=== PATIENT | female | born 1985 | race Caucasian/White ===

== ENCOUNTER → 2018-03-19 | Outpatient (CLI) | payer BC ==
[~2018-03-19] MED LIST: ACET500; ACET500 PO; Advil200 M1 PO; BUSP5 PO; ESCI10 PO; HYDACE5 PO; IBUP800 PO; LANS15EC PO; Multiple Vitam1 EAC1 PO; ONDA4 PO; OXYACE5T PO; RANI150 PO; Verotin-Gr Cap1 EACH PO
[2018-03-21 14:08] LABS: HPV 16 Negative (Negative); HPV 18 Negative (Negative); HPV OTHER HR TYPES Negative (Negative)
== END | disposition home or self-care (01) ==
LOC: LAB SHORT 09:08 → LAB 09:08
PROVIDERS: Obstetrics & Gynecology
DX: Z01.419 Encounter for gynecological examination (general) (routine) without abnormal findings (principal)
CPT/HCPCS: 87624; G0123

== ENCOUNTER 2023-07-07 11:08 | Emergency (ER) | payer BC ==
[~2023-07-07] VITALS: Ht 165.1 cm; Wt 99.8 kg
[~2023-07-07 11:08] MED LIST changes: +DOCU100 PO; +Percocet 5-3251 EACH PO
[2023-07-07 12:57] VITALS: BP 128/83
== END 2023-07-07 13:36 | disposition home or self-care (01) ==
LOC: ER 11:08
DX: O26.893 Other specified pregnancy related conditions, third trimester (principal); R07.81 Pleurodynia; O99.513 Diseases of the respiratory system complicating pregnancy, third trimester; J40 Bronchitis, not specified as acute or chronic; Z3A.33 33 weeks gestation of pregnancy; Z79.899 Other long term (current) drug therapy
CPT/HCPCS: 71045

== ENCOUNTER 2023-08-19 09:23 | Inpatient (IN) | payer BC, OTHER ==
[~2023-08-19] VITALS: Ht 165.1 cm; Wt 104.0 kg
[2023-08-19] VITALS (19 sets, daily range): BP systolic 98–142; BP diastolic 58–88
[2023-08-19] MEDS ORDERED: Citric Acid/Sodium Citrate 30 ML BTL PO STA (09:49)
[2023-08-19] MEDS ORDERED: Metoclopramide HCl 5MG / ML 2ML Vial IV ONE (09:50)
[2023-08-19] MEDS ORDERED: CeFAZolin Sodium 2,000 MG in NS 100 ML IV SCH (09:50)
[2023-08-19] MEDS ORDERED: Lactated Ringer's 1,000 ML IV SCH ×2 (09:50→12:35)
[2023-08-19 10:09] LABS: BASOPHILS ABSOLUTE AUTO 0.03 K/mm3 (0.00-0.23); BASOPHILS PERCENT AUTO 0 % (0-2); EOSINOPHILS ABSOLUTE AUTO 0.05 K/mm3 (0.00-0.68); EOSINOPHILS PERCENT AUTO 0 % (0-6); Hemoglobin 11.1 g/dL (11.5-16.0); IMMATURE GRAN ABSOLUTE AUTO 0.05 K/mm3 (0.00-0.10); IMMATURE GRAN PERCENT AUTO 0 % (0-1); LYMPHOCYTES ABSOLUTE AUTO 1.84 K/mm3 (0.84-5.20); LYMPHOCYTES PERCENT AUTO 15 % (21-46); MONOCYTES ABSOLUTE AUTO 0.73 K/mm3 (0.16-1.47); MONOCYTES PERCENT AUTO 6 % (4-13); Mean Corpuscular HGB 28.8 pg (26.0-34.0); Mean Corpuscular HGB Conc 33.6 g/dL (31.5-36.5); Mean Corpuscular Volume 86 fL (80-100); Mean Platelet Volume 11.1 fL (9.1-12.4); NEUTROPHILS ABSOLUTE AUTO 9.26 K/mm3 (1.96-9.15); NEUTROPHILS PERCENT AUTO 77 % (41-73); Platelet Count 197 K/mm3 (150-400); RDW Coefficient Variation 13.4 % (11.7-14.2); RDW Standard Deviation 41.1 fL (35.1-46.3); Red Blood Cell Count 3.85 M/mm3 (3.80-5.20); White Blood Cell Count 11.96 K/mm3 (4.00-11.30)
[2023-08-19] MEDS ORDERED: ePHEDrine Sulfate 50 MG/ML 1ML Injection ONE (10:53)
[2023-08-19] MEDS ORDERED: Oxytocin 10 Unit / ML Vial ONE (10:55)
[2023-08-19] MEDS ORDERED: FentaNYL Citrate 50 MCG/ML 2 ML Injection ONE (10:56)
[2023-08-19] MEDS ORDERED: Bupivacaine 0.75%/Dext 8.25% 2 ML Amp IT ONE (10:56)
[2023-08-19] MEDS ORDERED: Lactated Ringer's 1,000 ML IV ONE (10:58)
[2023-08-19] MEDS ORDERED: Ondansetron HCl 2 MG / ML 2ML Vial IV PRN ×2 (11:15→12:45)
[2023-08-19] MEDS ORDERED: FentaNYL Citrate 50 MCG/ML 2 ML Injection IV PRN ×3 (11:15→11:20)
[2023-08-19] MEDS ORDERED: Phenylephrine HCl 100 MCG/ML-NS 10MLSYR (1MG/10ML) ONE (11:28)
--- NOTE | 2023-08-19 12:01 | NUR ---
08/19/23 1201 Farnaz Nash 1143 DELIVERY OF VIABLE MALE INFANT. WEIGHT 4290. APGARS 7/8. PLACENTA DELIVERED MANUALLY, COMPLETE.
[2023-08-19] MEDS ORDERED: Ketorolac Tromethamine 30mg Vial ONE (12:13)
[2023-08-19] MEDS ORDERED: Misoprostol 200 MCG Tab PR PRN (12:40)
[2023-08-19] MEDS ORDERED: Rho(D) Immune Globulin 300 MCG / SYR IM ONE (12:40)
[2023-08-19] MEDS ORDERED: Simethicone 80 MG Chew PO PRN (12:40)
[2023-08-19] MEDS ORDERED: Measles/Mumps/Rubella Vaccine 0.5 ML Vial SC ONE (12:40)
[2023-08-19] MEDS ORDERED: Magnesium Hydroxide Conc 10 ML UDC PO PRN (12:40)
[2023-08-19] MEDS ORDERED: Methylergonovine Maleate 0.2MG / ML 1ML Amp IM PRN (12:40)
[2023-08-19] MEDS ORDERED: Metoclopramide HCl 10 MG Tab PO PRN (12:40)
[2023-08-19] MEDS ORDERED: Acetaminophen 500 MG Tab PO PRN (12:45)
[2023-08-19] MEDS ORDERED: OxyCODONE HCL 5 MG TAB PO PRN (12:45)
[2023-08-19] MEDS ORDERED: Lanolin Cream TOP PRN (12:45)
[2023-08-19] MEDS ORDERED: DiphenhydrAMINE HCL 25 MG Cap PO PRN (12:45)
[2023-08-19] MEDS ORDERED: Carboprost Tromethamine 250 MCG/ML 1ML Amp IM PRN (12:45)
[2023-08-19] MEDS ORDERED: Morphine Sulfate 4 MG/1 ML Injection IV PRN (12:45)
[2023-08-19] MEDS ORDERED: Promethazine HCl 25 MG Supp PR PRN (12:50)
[2023-08-19] MEDS ORDERED: LR Oxytocin 20 Units 1,000 ML IV SCH (12:50)
[2023-08-19] MEDS ORDERED: Promethazine HCl 25 MG Tab PO PRN (12:50)
[2023-08-19] MEDS ORDERED: OXYTOCIN/RINGER'S LACTATE 500 ML IV SCH (12:50)
[2023-08-19] MEDS ORDERED: BusPIRone HCl 5 MG Tab PO PRN (12:55)
[2023-08-19] MEDS ORDERED: Ketorolac Tromethamine 30mg Vial IV SCH (13:00)
[2023-08-19] MEDS ORDERED: Ibuprofen 400 MG Tab PO SCH (16:00)
--- NOTE | 2023-08-19 17:49 | NUR ---
1730: PLAN IS FOR PT TO STAY AT [facility] ON BOARDER STATUS. PT TO ASSIST WITH NB CARE. PT TO GO TO [facility] FOR METHADONE DOSING. PT ENCOURAGED TO BE IN COMMUNICATION [facility] NURSERY NURSE ON WHEN FEEDS ARE SO SHE CAN ASSIST WITH FEEDS. PT ENCOURAGED TO GO IN AND HOLD NB OFTEN POSSIBLE. TO COMMUNICATE WITH NB'S RN ON WHEN SHE WILL BE LEAVING FOR CLASSES OR TO GO GET METHADONE. PT INFORMED THAT ONLY SHE IS ALLOWED TO GO IN AND SEE NB SINCE SHE IS THE PARENT. UNLESS A AVIONIC TECHNICIAN BECOMES INVOLVED THEN THAT PERSON WOULD BE ABLE TO GO IN A VISITOR ALSO. PT'S SUPPORT PERSON, DAVI, PRESENT FOR ALL OF THIS CONVERSATION. BOTH VERBALIZE UNDERSTANDING. PLAN TO GIVE EVENING DOSES OF MEDS AND PT TO MOVE TO [facility]ARD[facility] STATUS.
[2023-08-19] MEDS ORDERED: Docusate Sodium 100 MG Cap PO SCH (21:00)
[2023-08-20] VITALS (7 sets, daily range): BP systolic 115–136; BP diastolic 71–85
[2023-08-20 05:58] LABS: BASOPHILS ABSOLUTE AUTO 0.03 K/mm3 (0.00-0.23); BASOPHILS PERCENT AUTO 0 % (0-2); EOSINOPHILS ABSOLUTE AUTO 0.02 K/mm3 (0.00-0.68); EOSINOPHILS PERCENT AUTO 0 % (0-6); Hematocrit 28.9 % (33.0-51.0); Hemoglobin 9.7 g/dL (11.5-16.0); IMMATURE GRAN ABSOLUTE AUTO 0.06 K/mm3 (0.00-0.10); IMMATURE GRAN PERCENT AUTO 0 % (0-1); LYMPHOCYTES ABSOLUTE AUTO 1.81 K/mm3 (0.84-5.20); LYMPHOCYTES PERCENT AUTO 12 % (21-46); MONOCYTES ABSOLUTE AUTO 1.01 K/mm3 (0.16-1.47); MONOCYTES PERCENT AUTO 7 % (4-13); Mean Corpuscular HGB 29.1 pg (26.0-34.0); Mean Corpuscular HGB Conc 33.6 g/dL (31.5-36.5); Mean Corpuscular Volume 87 fL (80-100); NEUTROPHILS ABSOLUTE AUTO 11.78 K/mm3 (1.96-9.15); NEUTROPHILS PERCENT AUTO 80 % (41-73); Platelet Count 181 K/mm3 (150-400); RDW Coefficient Variation 13.7 % (11.7-14.2); RDW Standard Deviation 42.5 fL (35.1-46.3); Red Blood Cell Count 3.33 M/mm3 (3.80-5.20); White Blood Cell Count 14.71 K/mm3 (4.00-11.30)
[2023-08-20] MEDS ORDERED: Prenatal Vit/FE Fumarate/FA 1 Tab PO SCH (09:00)
--- NOTE | 2023-08-20 12:00 | NUR ---
AMBULATED TO NURSERY WITH BABY FOR 24 HOUR CARE
[2023-08-21 05:25] VITALS: BP 116/60
[2023-08-21 08:49] VITALS: BP 117/75
[2023-08-21 10:53] VITALS: BP 139/86
--- NOTE | 2023-08-21 11:15 | NUR ---
PT DISCHARGED TO HOME WITH BABY AT THIS TIME. D/C INSTRUCTIONS REVIEWED, QUESTIONS ANSWERED AND COPY PROVIDED, PT STATES UNDERSTANDING. ALL BELONGINGS WITH PT, ESCORTED TO FRONT WITH ROMI FERGUSON. PT DEMONSTRATED CORRECT CAR SEAT USE.
== END 2023-08-21 11:15 | disposition home or self-care (01) | DRG 788 ==
LOC: OBS 09:23 → BC 09:39
PROVIDERS: ADMIT Obstetrics & Gynecology
PROC: 10D00Z1 Extraction of Products of Conception, Low, Open Approach (ICD-10-PCS; principal; 2023-08-19 09:00)
DX: O42.02 Full-term premature rupture of membranes, onset of labor within 24 hours of rupture (principal); O34.211 Maternal care for low transverse scar from previous cesarean delivery; Z3A.38 38 weeks gestation of pregnancy; Z37.0 Single live birth; O99.344 Other mental disorders complicating childbirth; F41.9 Anxiety disorder, unspecified; O36.63X0 Maternal care for excessive fetal growth, third trimester, not applicable or unspecified
CPT/HCPCS: 36415; 85025; 86850; 86900; 86901; 86923; A9270; J0690; J1885; J2371; J2590; J2765; J3010; J7120